=== PATIENT | male | born 1985 | race Caucasian/White ===

== ENCOUNTER 2018-03-06 10:28 | Emergency (ER) | payer OTHER, MEDICAID, SELFPAY ==
[2018-03-06 10:47] VITALS: BP 139/93; PULSE 74; RESP 20; TEMP 36.7; O2SAT 98
--- NOTE | 2018-03-06 10:54 | ED_ITS ---
HPI - Dental/Oral General Chief complaint: Dental/Oral Stated complaint: BURNING PAIN IN THROAT, HURTS TO EAT OR SWALLOW Time Seen by Provider: 03/06/18 10:46 Source: patient Mode of arrival: ambulatory Limitations: no limitations History of Present Illness HPI Narrative: 32-year-old male here for evaluation approximately 4 days of worsening sore throat. Denies any other sinus congestion or ear pain. Has not tried anything for it in the past. Does have a cough. No shortness of breath. Related Data Previous Rx's Medication Instructions Recorded penicillin V potassium 500 mg PO BID 10 Days #20 tab 03/06/18 Allergies Allergy/AdvReac Type Severity Reaction Status Date / Time No Known Drug Allergies Allergy Verified 03/06/18 11:09 Review of Systems Constitutional Denies chills, Reports fever(s) (Subjective fevers) and Denies headache(s) Eyes Denies diplopia and Denies eye pain ENT Ears, Nose, Mouth, and Throat: Denies dental pain, Denies vertigo, Denies dizziness, Denies facial pain, Denies headache(s), Denies nasal trauma, Denies tinnitus, Denies sinus pain, Denies sinus pressure, Reports sore throat, Reports throat swelling and Denies tongue swelling Cardiovascular Denies dyspnea Respiratory Reports cough and Denies dyspnea Gastrointestinal Gastrointestinal: Denies nausea and Denies vomiting Integumentary/Breasts Denies rash and Denies sores Neurologic Denies behavioral changes, Denies vertigo, Denies dizziness and Denies headache( s) Psychiatric Denies behavioral changes Allergic/Immunologic Reports throat swelling and Denies tongue swelling PFS Social History Smoking Status: Current every day smoker Exam Initial Vital Signs Initial Vital Signs: Vital Signs Temperature 98.1 F 03/06/18 10:47 Pulse Rate 74 03/06/18 10:47 Respiratory Rate 20 03/06/18 10:47 Blood Pressure 139/93 H 03/06/18 10:47 Pulse Oximetry 98 03/06/18 10:47 Const General: cooperative, healthy appearing, well developed, well groomed and No acute distress Orientation: alert, awake and oriented x3 HENMT Head: normal to inspection, normocephalic and atraumatic Ears: TM's normal bilaterally Nose: external nose normal Face and sinus: normal facial exam Mouth: other (Patient with exudate bilateral oropharynx with midline uvula) Throat: uvula midline Neck Lymphatic: lymphadenopathy Resp Effort & Inspection: normal respiratory effort Auscultation: clear to auscultation bilaterally Cardio Rate: regular rate Rhythm: regular rhythm Pulses: radial pulses present Skin Lesions: no lesions Rashes: no rashes Neuro General: alert, awake and oriented x3 Cognition: normal cognition Speech: speech normal Gait: normal gait Extrem General: normal to inspection Course Vital Signs - 8 hr 03/06/18 10:47 Temperature 98.1 F Pulse Rate 74 Respiratory Rate 20 Blood Pressure 139/93 H Pulse Oximetry 98 MDM - Dental/Oral MDM Narrative Medical decision making narrative: Patient's rapid strep test here in the emergency department resulted as ?invalid ?rather than repeating this given his history and physical exam I feel that strep throat is a high possibility. He does have bilateral exudate and lymphadenopathy and chills and subjective fevers. Discussed treatment options with the patient to include 1 time dose of intramuscular antibiotics versus oral antibiotics for the next 10 days. He opted for the oral antibiotics. He denied any allergies. Patient was also given Motrin and steroids here in the ER. He was given return precautions. No indication for IV fluids. Patient is not in respiratory distress. Physical exam not consistent with retropharyngeal abscess or peritonsillar abscess. Patient expressed understanding and agreement with plan. Discharge Plan Departure Patient Disposition: Home, Self-Care Clinical Impression: Acute pharyngitis Instructions: Sore Throat, DI for Pharyngitis/Tonsillopharyngitis -- Adult Activity Restrictions/Additional Instructions: Recommend that you continue to increase your fluid intake. Take all of the antibiotics as directed. Return to the emergency department for any new or worsening symptoms Prescriptions: New penicillin V potassium 500 mg tablet 500 mg PO BID 10 Days Qty: 20 RF: 0
--- NOTE | 2018-03-06 11:39 | PC.NURSE ---
strep test inconclusive, did not want a repeat
[2018-03-06] MEDS: DEXAMETHASONE 10 MG/ML VIAL PO (11:52)
[2018-03-06] MEDS: IBUPROFEN 400 MG TABLET 800 MG PO (11:52)
[2018-03-06 11:56] VITALS: BP 139/82; PULSE 67; O2SAT 100
[2018-03-06 12:14] VITALS: BP 120/77; PULSE 55; RESP 14; O2SAT 99
== END 2018-03-06 12:14 | disposition home or self-care (01) ==
PROVIDERS: Emergency Provider Emergency Medicine
DX: J02.9 Acute pharyngitis, unspecified (principal)
CPT/HCPCS: 87880; 99282; 99283; J1100

== ENCOUNTER 2018-05-14 18:05 | Emergency (ER) | payer OTHER, MEDICAID, SELFPAY ==
[2018-05-14 18:08] VITALS: BP 137/73; PULSE 128; RESP 20; TEMP 36.5; O2SAT 100; BMI 25.8
--- NOTE | 2018-05-14 20:46 | ED_ITS ---
HPI - Skin/Abscess/Foreign Bdy <MATT Rodriguez - Last Filed: 05/14/18 22:10> General Chief complaint: Skin/Abscess/Foreign Body Stated complaint: LUMP ON LEFT UPPER LEG Time Seen by Provider: 05/14/18 19:58 Source: patient Mode of arrival: ambulatory Limitations: no limitations History of Present Illness HPI narrative: 33-year-old male with history of prior abscesses and his current everyday smoker here for complaint of having a area of swelling to his left inner thigh area for the past several days. Reports worsening redness over the past couple of days. He denies any drainage from the area. No trauma to the area. No fevers no chills. He denies any other concerns at this timeframe. MD complaint: lesion Related Data Previous Rx's Medication Instructions Recorded clindamycin HCl 300 mg PO QID #28 cap 05/14/18 Allergies Allergy/AdvReac Type Severity Reaction Status Date / Time No Known Drug Allergies Allergy Verified 03/06/18 11:09 Review of Systems <MATT Rodriguez - Last Filed: 05/14/18 22:10> Constitutional Denies chills, Denies fever(s), Denies lethargy and Denies weakness Eyes Denies change in vision, Denies eye discharge, Denies irritation and Denies loss of vision Cardiovascular Denies chest pain, Denies irregular heart rhythm, Denies lightheadedness, Denies palpitations, Denies dyspnea, Denies dyspnea on exertion and Denies orthopnea Respiratory Denies cough, Denies dyspnea, Denies dyspnea on exertion and Denies wheezing Gastrointestinal Gastrointestinal: Denies abdominal pain, Denies change in bowel habits, Denies diarrhea, Denies nausea and Denies vomiting Genitourinary Denies hematuria, Denies flank pain, Denies urinary incontinence and Denies urinary urgency Musculoskeletal Denies back pain, Denies muscle weakness, Denies numbness and Denies tingling Integumentary/Breasts Comments: Abscess to left inner thigh Neurologic Denies confusion, Denies loss of vision, Denies numbness, Denies tingling and Denies weakness Psychiatric Denies anxiety, Denies confusion, Denies depression, Denies homicidal ideation and Denies suicidal ideation Endocrine Denies palpitations Hematologic/Lymphatic Denies easy bruising Allergic/Immunologic Denies wheezing Exam <MATT Rodriguez Last Filed: 05/14/18 22:10> Initial Vital Signs Initial Vital Signs: Vital Signs Temperature 97.7 F 05/14/18 18:08 Pulse Rate 128 H 05/14/18 18:08 Respiratory Rate 20 05/14/18 18:08 Blood Pressure 137/73 05/14/18 18:08 Pulse Oximetry 100 05/14/18 18:08 Const General: cooperative and well developed Nutritional Appearance: well nourished Orientation: alert, awake, oriented x3 and not confused HENNH Mouth: oral mucosae normal and moist mucous membranes Eyes Conjunctivae: conjunctivae normal Sclera: sclerae normal Pupils: PERRL EOM: EOM intact bilaterally Resp Effort & Inspection: normal respiratory effort, able to speak in complete sentences, no respiratory distress and no use of accessory muscles Auscultation: clear to auscultation bilaterally, no rales, no rhonchi and no wheezes Cardio Rate: regular rate Rhythm: regular rhythm Heart Sounds: no click, no gallops, no murmurs and no rubs Pulses: normal peripheral pulses GI Inspection: non-distended Palpation: soft, no hepatosplenomegaly, No guarding, No pulsatile mass and No tender Auscultation: normal bowel sounds Skin General: no rashes or lesions noted, No jaundice and No petechiae Neuro General: alert, oriented x3, gait normal and no focal motor deficits Speech: speech normal Extrem Other: 1.5 cm circular raised nodule to the left inner thigh with induration and fluctuance. Slight amount of surrounding erythema. No drainage. Distal CMS is intact. <Eloina Jerome DO - Last Filed: 05/14/18 23:57> Initial Vital Signs Initial Vital Signs: Vital Signs Temperature 97.7 F 05/14/18 18:08 Pulse Rate 128 H 05/14/18 18:08 Respiratory Rate 20 05/14/18 18:08 Blood Pressure 137/73 05/14/18 18:08 Pulse Oximetry 100 05/14/18 18:08 Procedures <MATT Rodriguez - Last Filed: 05/14/18 22:10> Abscess I/D Site: lower extremity Side (if applicable): left Local Anesthetic: lidocaine 1% Amount of anesthesia used (mL): 1 Technique: needle aspiration Amount of fluid expressed (mL): 1 Irrigation: No Packing used?: none Complications: other Course <MATT Rodriguez - Last Filed: 05/14/18 22:10> Orders Ordered: Discontinued Medications Clindamycin HCl (Cleocin) 300 mg PO NOW ONE Stop: 05/14/18 20:45 Last Admin: 05/14/18 20:55 Dose: 300 mg Ibuprofen (Advil) 400 mg PO NOW ONE Stop: 05/14/18 20:46 Last Admin: 05/14/18 20:55 Dose: 400 mg Vital Signs - 8 hr 05/14/18 18:08 05/14/18 20:58 Temperature 97.7 F Pulse Rate 128 H 68 Respiratory Rate 20 16 Blood Pressure 137/73 Blood Pressure [Left Arm] 145/72 H Pulse Oximetry 100 96 <Eloina Jerome DO - Last Filed: 05/14/18 23:57> Orders Ordered: Discontinued Medications Clindamycin HCl (Cleocin) 300 mg PO NOW ONE Stop: 05/14/18 20:45 Last Admin: 05/14/18 20:55 Dose: 300 mg Ibuprofen (Advil) 400 mg PO NOW ONE Stop: 05/14/18 20:46 Last Admin: 05/14/18 20:55 Dose: 400 mg Vital Signs - 8 hr 05/14/18 18:08 05/14/18 20:58 Temperature 97.7 F Pulse Rate 128 H 68 Respiratory Rate 20 16 Blood Pressure 137/73 Blood Pressure [Left Arm] 145/72 H Pulse Oximetry 100 96 MDM - Skin/Abscess/Foreign Bdy <MATT Rodriguez - Last Filed: 05/14/18 22:10> MDM Narrative Medical decision making narrative: I and d was completed to abscess to left inner thigh with 18 gauge needle small purulent amount of drainage is removed. Wound dressed with bacitracin and dressing. He is placed on clindamycin. Follow up with primary care provider next week for re-evaluation. For any worsening symptoms return to the emergency room. Use [id number] Tylenol or Motrin as needed for any discomfort. Warm moist compresses to the area 4 to 5 times a day for 20 min at a time. Discharge Plan Departure Patient Disposition: Home Clinical Impression: Abscess of left thigh Discharge Date/Time: 05/14/18 21:17 Interventions: ED Discharge Assessment Last Done: 05/14/18 21:16 Instructions: DI for Skin Abscess Activity Restrictions/Additional Instructions: I and d was completed to abscess to left inner thigh. You have been placed on clindamycin. Follow up with primary care provider next week for re-evaluation. For any worsening symptoms return to the emergency room. Use over-the- counter Tylenol or Motrin as needed for any discomfort. Dress wound daily with bacitracin and a dressing. Warm compresses to the area 4 to 5 times a day for 20 min at a time for the next couple of days. Prescriptions: New clindamycin HCl 300 mg capsule 300 mg PO QID Qty: 28 RF: 0 Referrals: [facility] [Provider Group] <Eloina Jerome DO - Last Filed: 05/14/18 23:57> Cosign ED Attending Anilature Attestation: I was immediately available in the department for consultation. Documentation has been reviewed. I agree with assessment and plan.
[2018-05-14] MEDS: IBUPROFEN 400 MG TABLET PO (20:55)
[2018-05-14] MEDS: CLINDAMYCIN 150 MG CAPSULE 300 MG PO (20:55)
[2018-05-14 20:58] VITALS: BP 145/72; PULSE 68; RESP 16; O2SAT 96
== END 2018-05-14 21:17 | disposition home or self-care (01) ==
PROVIDERS: Emergency Provider Nurse Practitioner Family
DX: L02.416 Cutaneous abscess of left lower limb (principal)
CPT/HCPCS: 10060; 99283

== ENCOUNTER 2018-08-31 07:16 | Emergency (ER) | payer OTHER, MEDICAID, SELFPAY ==
[2018-08-31 07:22] VITALS: BP 132/77; PULSE 56; RESP 16; TEMP 36.2; O2SAT 97; BMI 22.9
--- NOTE | 2018-08-31 08:01 | ED_ITS ---
HPI - Skin/Abscess/Foreign Bdy General Chief complaint: Skin/Abscess/Foreign Body Stated complaint: left ear pain, rt arm ? Time Seen by Provider: 08/31/18 07:49 Source: patient Mode of arrival: ambulatory Limitations: no limitations History of Present Illness HPI narrative: Patient is a 33-year-old male who is complains of itching and rash all over his body. He denies any hallucinations of of bugs. He says it started a few days ago. He feels like his skin is crawling. He has no fever or chills. He denies any drug use. He states that he got fired last night from his job and that his left him. Also complaining of rectal pain which started 30 min ago. He denies any have no bowel movements no abdominal pain MD complaint: rash Tetanus up to date: unsure Location: generalized Severity: mild Quality: pruritic Relieving factors: none Exacerbating factors: none Related Data Previous Rx's Medication Instructions Recorded clindamycin HCl 300 mg PO QID #28 cap 05/14/18 diphenhydramine HCl 25 mg PO Q6H PRN #20 cap 08/31/18 Allergies Allergy/AdvReac Type Severity Reaction Status Date / Time No Known Drug Allergies Allergy Verified 08/31/18 07:22 Review of Systems Review of Systems All systems reviewed & are unremarkable except as noted in HPI and below Constitutional Denies chills, Denies fever(s), Denies lethargy and Denies weakness Cardiovascular Denies chest pain, Denies irregular heart rhythm, Denies lightheadedness, Denies palpitations, Denies dyspnea, Denies dyspnea on exertion and Denies orthopnea Respiratory Denies cough, Denies dyspnea, Denies dyspnea on exertion and Denies wheezing Gastrointestinal Gastrointestinal: Reports as per HPI, Denies abdominal pain, Denies diarrhea, Denies nausea and Denies vomiting Musculoskeletal Denies back pain, Denies muscle weakness, Denies numbness and Denies tingling Integumentary/Breasts Reports as per HPI Neurologic Denies numbness, Denies tingling and Denies weakness Endocrine Denies palpitations Allergic/Immunologic Denies wheezing PFSH Medical History Patient denies medical problems (Acute) Social History Smoking Status: Current every day smoker substance use type: methamphetamine Exam Initial Vital Signs Initial Vital Signs: Vital Signs Temperature 97.2 F L 08/31/18 07:22 Pulse Rate 56 L 08/31/18 07:22 Respiratory Rate 16 08/31/18 07:22 Blood Pressure 132/77 08/31/18 07:22 Pulse Oximetry 97 08/31/18 07:22 GENERAL: Well-appearing, well-nourished and in no acute distress. HEENT: Head atraumatic,EOMI, pupils reactive CARDIOVASCULAR: Regular rate and rhythm without murmurs, rubs or gallops. RESPIRATORY: Breath sounds equal bilaterally, no wheezes rales or rhonchi. ABDOMEN: Soft, nontender. Normoactive bowel sounds all 4 quadrants. No guarding or rebound. RECTAL: No hemorrhoids no stool in rectal vault nontender no sign of trauma EXTREMITIES: Normal range of motion, no clubbing or edema. Neurovascularly intact NEUROLOGICAL: Alert and oriented x4.Normal gait and speech. SKIN: No track locke no bites, minimal diffuse erythema no abscess Course Vital Signs - 8 hr 08/31/18 07:22 Temperature 97.2 F L Pulse Rate 56 L Respiratory Rate 16 Blood Pressure 132/77 Pulse Oximetry 97 Discharge Plan Departure Patient Disposition: Home Clinical Impression: Rash Discharge Date/Time: 08/31/18 08:19 Interventions: ED Discharge Assessment Last Done: 08/31/18 08:12 Instructions: DI for Rash Activity Restrictions/Additional Instructions: *You have been diagnosed with rash *What to do: No sign of infection no bugs, try a lotion to help moisturize *Continue to take medications as directed: Faxed to [facility] Benadryl 25-50 mg every 6 hr if needed for itching this does cause drowsiness do not drive or operate heavy machinery *Follow up with your primary care provider in 2-3 days *Return to ER if you should have worsening rash, fever or any new, worsening or concerning symptoms Prescriptions: New diphenhydramine HCl 25 mg capsule 25 mg PO Q6H PRN (Reason: itching) Qty: 20 RF: 0 No Action clindamycin HCl 300 mg capsule 300 mg PO QID Qty: 28 RF: 0
--- NOTE | 2018-08-31 08:11 | PC.NURSE ---
pt c/o itching, rash all over body. states feels like something crawling pt's skin reddened, mild scratch locke. pt states it could just be hallucinations states has had that in the past. states because im an idiot, no willing to elaborate on subject.
--- NOTE | 2018-08-31 08:15 | PC.NURSE ---
pt discharged. approached patient in the room to ask if he had anyother concerns, it had been 10min since discharge. pt still sitting on bed shirt and shoes off. pt appears angry states ya thanks for the attitude asked pt if there is a problem, if he had more questions pt continues to escalate, appearing more angry. pt raising voice grabs shoes and states ill just leave without my shoes on then states i dont appreciate your attitude, and forcing me to leave again expressed to patient we were finished with his care, unless he had more questions. pt storms out of room, stating im going to contact your boss, you are so rude. Unknown why patient became angry. pt unwilling to discuss situation with staff to try and resolve. pt continues to mumble and storm out of department.
--- NOTE | 2018-08-31 08:20 | PC.NURSE ---
reminded patient to take his paperwork, attempted to put paperwork in his hand as he was leaving room. pt states i dont need that fucking paper. and left.
== END 2018-08-31 08:19 | disposition home or self-care (01) ==
PROVIDERS: Emergency Provider Emergency Medicine
DX: R21 Rash and other nonspecific skin eruption (principal)
CPT/HCPCS: 99282

== ENCOUNTER 2018-09-01 02:43 | Emergency (ER) | payer OTHER, MEDICAID, SELFPAY ==
[2018-09-01 02:56] VITALS: BP 151/89; PULSE 100; RESP 20; TEMP 36.5; O2SAT 97; BMI 24.3
--- NOTE | 2018-09-01 03:09 | ED.GENADULT ---
HPI - General Adult General Chief complaint: Eye Problems Stated complaint: RASH ON EYES, RECTAL PAIN Time Seen by Provider: 09/01/18 02:45 Source: patient Mode of arrival: ambulatory Limitations: no limitations History of Present Illness HPI narrative: 33-year-old male who was seen here in the emergency department yesterday morning for the same symptoms that he returns for today. He states that yesterday he was seen by the day provider he states did not do anything for him accepts and him with Benadryl. He states he did not take the Benadryl. He returns today for further evaluation. No new symptoms. Related Data Previous Rx's Medication Instructions Recorded clindamycin HCl 300 mg PO QID #28 cap 05/14/18 diphenhydramine HCl 25 mg PO Q6H PRN #20 cap 08/31/18 erythromycin 0.5 inch EYE-RIGHT Q8H 3 Days #3.5 09/01/18 gram ibuprofen [Motrin IB] 200 mg PO TID-QID PRN #60 tab 09/01/18 Allergies Allergy/AdvReac Type Severity Reaction Status Date / Time No Known Drug Allergies Allergy Verified 09/01/18 03:01 Review of Systems Constitutional Denies fever(s) and Denies headache(s) Eyes Denies change in vision, Reports irritation (Right), Reports itchy eyes and Reports eye pain (Right) ENT Ears, Nose, Mouth, and Throat: Denies vertigo, Denies dizziness, Denies headache(s), Denies sore throat and Denies throat swelling Cardiovascular Denies chest pain, Denies palpitations and Denies dyspnea Respiratory Denies dyspnea Gastrointestinal Gastrointestinal: Reports abdominal pain, Denies nausea and Denies vomiting Comments: Rectal pain Genitourinary Denies dysuria Musculoskeletal Denies myalgias and Denies arthralgias Integumentary/Breasts Reports pruritus and Reports rash Neurologic Denies vertigo, Denies dizziness and Denies headache(s) Endocrine Denies palpitations Hematologic/Lymphatic Denies easy bleeding and Denies easy bruising Allergic/Immunologic Denies urticaria, Reports itchy eyes and Denies throat swelling PFSH Medical History Patient denies medical problems (Acute) Social History Smoking Status: Current every day smoker substance use type: methamphetamine Exam Initial Vital Signs Initial Vital Signs: Vital Signs Temperature 97.7 F 09/01/18 02:56 Pulse Rate 100 H 09/01/18 02:56 Respiratory Rate 20 09/01/18 02:56 Blood Pressure 151/89 H 09/01/18 02:56 Pulse Oximetry 97 09/01/18 02:56 Const General: cooperative, comfortable, well developed, well groomed and No acute distress Orientation: alert, awake and oriented x3 HENMT Head: normal to inspection and normocephalic Eyes Other: Left eye unremarkable Right eye with green discharge No uptake of stain with fluorescein Resp Effort & Inspection: normal respiratory effort Auscultation: clear to auscultation bilaterally Cardio Rate: regular rate Rhythm: regular rhythm GI Inspection: non-distended Palpation: soft Rectal Exam: visual inspection normal, normal sphincter tone, No fissure, No hemorrhoids, No laceration and No lesions Skin Lesions: no lesions Rashes: no rashes Other: Patient has areas of redness in sun-exposed areas on the back of his neck and also the back of his hands. No at work area. Does have dry skin throughout. No signs of scabies. No signs of infection. Neuro General: alert, awake and oriented x3 Extrem General: normal to inspection and capillary refill normal Psych Appearance: grossly normal and well kempt Course Vital Signs - 8 hr 09/01/18 02:56 Temperature 97.7 F Pulse Rate 100 H Respiratory Rate 20 Blood Pressure 151/89 H Pulse Oximetry 97 Medical Decision Making [facility] Narrative Medical decision making narrative: Patient with no specific rash. He was given a prescription for Benadryl during his last visit which I encouraged him to take. Patient does have green drainage from his right eye. Does not wear contacts. No uptake with fluorescein stain. Will send home with a prescription for erythromycin ointment. No signs of corneal abrasion. Patient with normal rectal exam. Will hold on further workup for now. Patient was reassured on his symptoms. He was given return precautions. He expressed understanding and agreement with plan. Discharge Plan Departure Patient Disposition: Home Clinical Impression: Conjunctivitis Instructions: DI for Conjunctivitis Activity Restrictions/Additional Instructions: I do recommend you take the Benadryl that was prescribed here during your last visit. Take the other medication likely discussed. Contact your primary care doctor for follow-up. Prescriptions: New erythromycin 5 mg/gram (0.5 %) ointment 0.5 inch EYE-RIGHT Q8H 3 Days Qty: 3.5 RF: 0 ibuprofen [Motrin IB] 200 mg tablet 200 mg PO TID-QID PRN (Reason: fever or pain) Qty: 60 RF: 0 No Action clindamycin HCl 300 mg capsule 300 mg PO QID Qty: 28 RF: 0 diphenhydramine HCl 25 mg capsule 25 mg PO Q6H PRN (Reason: itching) Qty: 20 RF: 0
--- NOTE | 2018-09-01 03:16 | PC.NURSE ---
patient states he was given Benadryl yesterday but forgot his prescription and didn't try anything else. Pt states he showered yesterday but it did not help. Today has redness in his eye and his itching is worse. States he also feel like something is in his hair
[2018-09-01] MEDS: ERYTHROMYCIN OPHTH 1 GM OINT 1 APPLIC EYE-RIGHT (03:29)
--- NOTE | 2018-09-01 03:45 | PC.NURSE ---
provided pt with socks per request. States he did not bring his own. Pt is in room washing hands, rubbing at eyes, and going through linen closet. Informed pt that he is ready for discharge and is able to go home.
--- NOTE | 2018-09-01 04:02 | PC.NURSE ---
Patient still in room, site coordinator asked him if he was okay and stated he has been discharged. Pt had not yet put on socks and became upset at being asked to leave. Pt grabbed belongings and left department.
== END 2018-09-01 04:04 | disposition home or self-care (01) ==
PROVIDERS: Emergency Provider Emergency Medicine
DX: H10.9 Unspecified conjunctivitis (principal)
CPT/HCPCS: 99282; 99283

== ENCOUNTER 2018-12-18 23:20 | Emergency (ER) | payer OTHER, MEDICAID, SELFPAY ==
[2018-12-18 23:20] VITALS: BP 124/84; PULSE 90; RESP 18; TEMP 36.6; O2SAT 99; BMI 28.3
--- NOTE | 2018-12-19 00:19 | ED.ANXIETY ---
HPI - Anxiety General Chief Complaint: Anxiety Stated Complaint: thinks he is having drug induced hallucinations Time Seen by Provider: 12/19/18 00:19 Source: patient Mode of arrival: ambulatory Limitations: no limitations History of Present Illness HPI narrative: Patient is a 33-year-old male who arrived to the emergency department for evaluation of a panic attack. Patient states he has had panic attacks in the past. He stated that he did smoke some methamphetamine earlier today. He states that he either smokes it or snorts it however today he did smoke it. He states that afterwards he started to feel very panicked. He took a Benadryl prior to arrival as well. By the time I evaluated him patient states that he felt much better. Related Data Previous Rx's Medication Instructions Recorded clindamycin HCl 300 mg PO QID #28 cap 05/14/18 diphenhydramine HCl 25 mg PO Q6H PRN #20 cap 08/31/18 ibuprofen [Motrin IB] 200 mg PO TID-QID PRN #60 tab 09/01/18 Allergies Allergy/AdvReac Type Severity Reaction Status Date / Time No Known Drug Allergies Allergy Verified 09/01/18 03:01 Review of Systems Constitutional Denies fever(s) and Denies headache(s) ENT Ears, Nose, Mouth, and Throat: Denies headache(s) Cardiovascular Denies chest pain and Denies dyspnea Respiratory Denies dyspnea Gastrointestinal Gastrointestinal: Denies abdominal pain Integumentary/Breasts Denies rash Neurologic Denies confusion and Denies headache(s) Psychiatric Reports anxiety, Denies confusion and Reports panic attacks Hematologic/Lymphatic Denies easy bleeding and Denies easy bruising Allergic/Immunologic Denies urticaria [facility], [facility]–1983 Medical History Patient denies medical problems (Acute) Social History Smoking Status: Current every day smoker substance use type: methamphetamine Social History Smoking Status: Current every day smoker substance use type: methamphetamine Exam Initial Vital Signs Initial Vital Signs: Vital Signs Temperature 97.9 F 12/18/18 23:20 Pulse Rate 90 12/18/18 23:20 Respiratory Rate 18 12/18/18 23:20 Blood Pressure 124/84 12/18/18 23:20 Pulse Oximetry 99 12/18/18 23:20 Const General: cooperative, well developed and No acute distress Orientation: alert, awake and oriented x3 HENMT Head: normal to inspection and normocephalic Nose: external nose normal, nares normal, septum normal and No epistaxis Resp Effort & Inspection: normal respiratory effort Cardio Rate: regular rate Skin Lesions: no lesions Rashes: no rashes Neuro General: alert, awake and oriented x3 Cognition: normal cognition Speech: other (Pressured speech) Extrem General: normal to inspection and capillary refill normal Psych Appearance: grossly normal Speech and Movement: pressured speech Mood: congruent mood Affect: normal affect Attitude: cooperative Thought Content: suicidality Course Vital Signs - 8 hr 12/18/18 23:20 12/19/18 00:51 Temperature 97.9 F Pulse Rate 90 84 Respiratory Rate 18 20 Blood Pressure 124/84 Blood Pressure [Left Arm] 128/88 Pulse Oximetry 99 98 MDM - Anxiety MDM Narrative Medical decision making narrative: Patient stated that his anxiety has greatly improved by the time I evaluated him here in the emergency department. He was alert oriented x3. he did admit to smoking methamphetamine prior to arrival which I suspect is was causing his issues. Hold on further workup for now. Patient was given return precautions and follow-up instructions. He expressed understanding and agreement with plan. Discharge Plan Departure Patient Disposition: Home Clinical Impression: Methamphetamine abuse, Anxiety Instructions: DI for Anxiety -- Adult, DI for Drug Abuse and Drug Addiction Activity Restrictions/Additional Instructions: No driving for the next 24 hours or in the future if you partake in intoxicating substances. Contact your primary care doctor for follow-up. Return to the emergency department for any new or worsening symptoms Prescriptions: No Action clindamycin HCl 300 mg capsule 300 mg PO QID Qty: 28 RF: 0 diphenhydramine HCl 25 mg capsule 25 mg PO Q6H PRN (Reason: itching) Qty: 20 RF: 0 ibuprofen [Motrin IB] 200 mg tablet 200 mg PO TID-QID PRN (Reason: fever or pain) Qty: 60 RF: 0
[2018-12-19 00:51] VITALS: BP 128/88; PULSE 84; RESP 20; O2SAT 98
[2018-12-19 02:35] VITALS: BP 131/81; PULSE 88; RESP 18; O2SAT 98
--- NOTE | 2018-12-19 02:40 | PC.NURSE ---
He can be discharged but will be allowed to sleep here until AM.HE feels much less anxious and is alert and oriented to place,date,person and situation.
[2018-12-19 06:28] VITALS: BP 129/81; PULSE 80; RESP 20; TEMP 36.6; O2SAT 100
== END 2018-12-19 06:30 | disposition home or self-care (01) ==
PROVIDERS: Emergency Provider Emergency Medicine
DX: F41.9 Anxiety disorder, unspecified (principal); F15.10 Other stimulant abuse, uncomplicated
CPT/HCPCS: 99282

== ENCOUNTER 2018-12-26 18:16 | Emergency (ER) | payer OTHER, MEDICAID, SELFPAY ==
[2018-12-26 18:23] VITALS: BP 136/82; PULSE 90; RESP 22; TEMP 36.6; O2SAT 98
[2018-12-26] MEDS: cephALEXin 250 MG PREPACK 1 BOTTLE MISC (18:46)
[2018-12-26] MEDS: ONDANSETRON 4 MG ODT SL (18:46)
[2018-12-26 18:57] VITALS: BP 131/91; PULSE 87; RESP 15; O2SAT 100
--- NOTE | 2018-12-26 23:45 | ED_ITS ---
HPI - Skin/Abscess/Foreign Bdy General Chief complaint: Skin/Abscess/Foreign Body Stated complaint: CUT L INDEX FINGER Time Seen by Provider: 12/26/18 18:20 Source: patient Mode of arrival: ambulatory Limitations: no limitations History of Present Illness HPI narrative: 33-year-old male smoker presents with a chief complaint of laceration to his left index finger suffered while performing lawn work. His tetanus is current and while using a pipe bowl paint trimmer he accidentally caught the volar surface of his left index finger. He has full range of motion and denies any numbness or tingling. He denies other injury. MD complaint: laceration Onset (ago): hour(s) Tetanus up to date: yes Location: L hand Severity: mild Quality: burning Pain Consistency: constant Relieving factors: none Exacerbating factors: none Associated symptoms: denies other symptoms Treatments prior to arrival: bandages Related Data Previous Rx's Medication Instructions Recorded clindamycin HCl 300 mg PO QID #28 cap 05/14/18 diphenhydramine HCl 25 mg PO Q6H PRN #20 cap 08/31/18 ibuprofen [Motrin IB] 200 mg PO TID-QID PRN #60 tab 09/01/18 cephalexin [Keflex] 500 mg PO QID 7 Days #28 cap 12/26/18 Allergies Allergy/AdvReac Type Severity Reaction Status Date / Time No Known Drug Allergies Allergy Verified 09/01/18 03:01 Review of Systems Constitutional Denies chills, Denies fever(s), Denies lethargy and Denies weakness Eyes Denies change in vision, Denies eye discharge, Denies irritation and Denies loss of vision ENT Ears, Nose, Mouth, and Throat: Denies change in voice, Denies neck pain and Denies sore throat Cardiovascular Denies chest pain, Denies irregular heart rhythm, Denies lightheadedness, Denies palpitations, Denies dyspnea, Denies dyspnea on exertion and Denies orthopnea Respiratory Denies cough, Denies dyspnea, Denies dyspnea on exertion and Denies wheezing Gastrointestinal Gastrointestinal: Denies abdominal pain, Denies change in bowel habits, Denies diarrhea, Denies nausea and Denies vomiting Genitourinary Denies hematuria, Denies flank pain, Denies urinary incontinence and Denies urinary urgency Musculoskeletal Denies neck pain Integumentary/Breasts Denies pruritus, Denies erythema, Denies rash and Reports wounds Neurologic Denies confusion, Denies loss of vision and Denies weakness Psychiatric Denies anxiety, Denies confusion, Denies depression, Denies homicidal ideation and Denies suicidal ideation Endocrine Denies palpitations Hematologic/Lymphatic Denies easy bruising Allergic/Immunologic Denies wheezing [facility] Medical History Patient denies medical problems (Acute) Social History Smoking Status: Current every day smoker substance use type: methamphetamine Social History Smoking Status: Current every day smoker substance use type: methamphetamine Exam Narrative Exam Narrative: GEN: AOx3 and in mild distress EYES: Pupils are equal, round, and reactive to light and accommodation. Extraoccular muscles are intact bilaterally. There is no subconjunctival hemorrhage or exudate. CHEST: Lungs are clear to auscultation bilaterally and free of wheezes, rales, or rhonchi. Heart rate is regular rhythm, there are no murmurs, clicks, rubs, or gallops. There is no chest wall tenderness. ABD: Abdomen is soft and nontender. There is no guarding or rebound. Bowel sounds are normal in all 4 quadrants. There is no mass or organomegaly. EXT: Full painless ROM of all extremities with no loss of sensation or strength. SKIN: 1 cm laceration on the volar aspect of left index finger with minimal active bleeding. Reviewed in bloodless field and note deep structure or tendon involvement noted Warm, pink, and dry. No erythema or rash Initial Vital Signs Initial Vital Signs: Vital Signs Temperature 97.8 F 12/26/18 18:23 Pulse Rate 90 12/26/18 18:23 Respiratory Rate 22 12/26/18 18:23 Blood Pressure 136/82 12/26/18 18:23 Pulse Oximetry 98 12/26/18 18:23 Procedures Laceration Repair Laceration 1: Site: hand Size (cm): 1 Description: linear Depth: simple, single layer Local Anesthetic: lidocaine 1% and with bicarb Amount of anesthesia used (mL): 3 Pre-repair: wound explored Skin layer closed with: nylon Size (cm): 5-0 Number of sutures: 4 Course Orders Ordered: Discontinued Medications Cefazolin Sodium (Keflex) 1 bottle MISC SEEINSTR ONE Stop: 12/26/18 18:41 Last Admin: 12/26/18 18:46 Dose: 500 mg Ondansetron HCl (Zofran Odt) 4 mg SL NOW ONE Stop: 12/26/18 18:41 Last Admin: 12/26/18 18:46 Dose: 4 mg Vital Signs - 8 hr 12/26/18 18:23 12/26/18 18:57 Temperature 97.8 F Pulse Rate 90 87 Respiratory Rate 22 15 Blood Pressure 136/82 131/91 H Pulse Oximetry 98 100 Discharge Plan Departure Patient Disposition: Home Clinical Impression: Finger laceration Qualifiers: Encounter type: initial encounter Finger: index finger Damage to nail status: without damage Foreign body presence: without foreign body Laterality: left Qualified Code(s): S61.211A - Laceration without foreign body of left index finger without damage to nail, initial encounter Discharge Date/Time: 12/26/18 18:59 Interventions: ED Discharge Assessment Last Done: 12/26/18 18:57 Instructions: DI for Laceration Repair Activity Restrictions/Additional Instructions: Please keep the wound clean and dry to the best of your ability. Please monitor for signs of infection such as redness to the skin or increasing pain. Have the sutures removed by your doctor in about 7 days. If you are unable to get into your doctor, we would be happy to remove the sutures in that same timeframe. Prescriptions: New cephalexin [Keflex] 500 mg capsule 500 mg PO QID 7 Days Qty: 28 RF: 0 No Action clindamycin HCl 300 mg capsule 300 mg PO QID Qty: 28 RF: 0 diphenhydramine HCl 25 mg capsule 25 mg PO Q6H PRN (Reason: itching) Qty: 20 RF: 0 ibuprofen [Motrin IB] 200 mg tablet 200 mg PO TID-QID PRN (Reason: fever or pain) Qty: 60 RF: 0 Referrals: Jax Junior MD [Primary Care Provider] -
== END 2018-12-26 18:59 | disposition home or self-care (01) ==
PROVIDERS: Emergency Provider Emergency Medicine; PCP Family Medicine
DX: S61.211A Laceration without foreign body of left index finger without damage to nail, initial encounter (principal)
CPT/HCPCS: 12001; 99282; 99283

== ENCOUNTER 2019-01-02 07:05 | Emergency (ER) | payer OTHER, MEDICAID, SELFPAY ==
[2019-01-02 07:26] VITALS: BP 135/97; PULSE 71; RESP 18; TEMP 36.6; O2SAT 100; BMI 25.1
--- NOTE | 2019-01-02 07:47 | ED_ITS ---
HPI - Wound/Laceration General Chief Complaint: Wound/Laceration Stated Complaint: Stitches taken out Time Seen by Provider: 01/02/19 07:40 Source: patient and old records reviewed Limitations: no limitations History of Present Illness HPI narrative: 33-year-old male comes in for suture removal. Patient injured his finger with hedge trimmers. He states it has been healing well. There is little bit of pain still. No redness, drainage or other changes. Related Data Previous Rx's Medication Instructions Recorded clindamycin HCl 300 mg PO QID #28 cap 05/14/18 diphenhydramine HCl 25 mg PO Q6H PRN #20 cap 08/31/18 ibuprofen [Motrin IB] 200 mg PO TID-QID PRN #60 tab 09/01/18 Allergies Allergy/AdvReac Type Severity Reaction Status Date / Time No Known Drug Allergies Allergy Verified 09/01/18 03:01 Review of Systems Review of Systems ROS Unobtainable: All systems reviewed & are unremarkable except as noted in HPI and below Integumentary/Breasts Reports other (healing incision.) [facility] Social History Smoking Status: Current every day smoker substance use type: methamphetamine Exam Narrative Exam Narrative: second finger on left hand, healing incision with no signs of infection, drainage or erythema. Appears clean dry and intact and healing well. Sutures removed in entirety by nursing staff. Initial Vital Signs Initial Vital Signs: Vital Signs Temperature 97.9 F 01/02/19 07:26 Pulse Rate 71 01/02/19 07:26 Respiratory Rate 18 01/02/19 07:26 Blood Pressure 135/97 H 01/02/19 07:26 Pulse Oximetry 100 01/02/19 07:26 Course Vital Signs - 8 hr 01/02/19 07:26 Temperature 97.9 F Pulse Rate 71 Respiratory Rate 18 Blood Pressure 135/97 H Pulse Oximetry 100 Discharge Plan Departure Patient Disposition: Home Clinical Impression: Encounter for removal of sutures Discharge Date/Time: 01/02/19 07:56 Interventions: ED Discharge Assessment Last Done: 01/02/19 07:56 Activity Restrictions/Additional Instructions: Wound Care: Keep wound(s) clean and dry. Wash daily with soap and water only. Take antibiotics until gone. Do not use over the counter products (alcohol or peroxide)on the wounds unless instructed by a physician. If wound condition worsens (increased/expanding redness, developing fluid bliste rs, or worsening pain), either contact your doctor for an urgent re-assessment , or return to the Emergency Department. Return to the Emergency Department for any new or worsening symptoms. Prescriptions: No Action clindamycin HCl 300 mg capsule 300 mg PO QID Qty: 28 RF: 0 diphenhydramine HCl 25 mg capsule 25 mg PO Q6H PRN (Reason: itching) Qty: 20 RF: 0 ibuprofen [Motrin IB] 200 mg tablet 200 mg PO TID-QID PRN (Reason: fever or pain) Qty: 60 RF: 0 Referrals: Jax Junior MD [Primary Care Provider] -
--- NOTE | 2019-01-02 07:50 | PC.NURSE ---
removed 3 sutures . left hand 2nd finger. without incident. tolerated well. Dr. Johnson assessed finger post sutures removed
== END 2019-01-02 07:56 | disposition home or self-care (01) ==
PROVIDERS: Emergency Provider Emergency Medicine; PCP Family Medicine
DX: Z48.02 Encounter for removal of sutures (principal)
CPT/HCPCS: 99283

== ENCOUNTER 2019-03-09 16:24 | Emergency (ER) | payer OTHER, MEDICAID, SELFPAY ==
[2019-03-09 16:59] VITALS: BP 142/78; PULSE 100; RESP 12; TEMP 37.1; O2SAT 98
--- NOTE | 2019-03-09 17:06 | ED_ITS ---
HPI - URI/Sore Throat General Chief Complaint: Upper Respiratory Symptoms Stated Complaint: SORE THROAT Time Seen by Provider: 03/09/19 17:00 Source: patient Mode of arrival: ambulatory Limitations: no limitations History of Present Illness HPI Narrative: 33-year-old male here for evaluation of 3 days of a sore throat. Has felt feverish at home but no specific fevers. No ear pain. No sore throat. No cough. Related Data Home Medications Medication Instructions Recorded Confirmed Penicillin Tab 2 tab PO .ONCE 03/09/19 03/09/19 Allergies Allergy/AdvReac Type Severity Reaction Status Date / Time No Known Drug Allergies Allergy Verified 09/01/18 03:01 Review of Systems Constitutional Reports fever(s) ENT Ears, Nose, Mouth, and Throat: Denies vertigo, Denies neck pain, Reports sore throat and Denies throat swelling Cardiovascular Denies chest pain and Denies dyspnea Respiratory Denies cough and Denies dyspnea Gastrointestinal Gastrointestinal: Denies abdominal pain, Denies nausea and Denies vomiting Musculoskeletal Denies neck pain Integumentary/Breasts Denies rash Neurologic Denies confusion and Denies vertigo Psychiatric Denies confusion Hematologic/Lymphatic Denies easy bleeding and Denies easy bruising Allergic/Immunologic Denies throat swelling PFSH Medical History Patient denies medical problems (Acute) Social History Smoking Status: Current every day smoker substance use type: methamphetamine Exam Initial Vital Signs Initial Vital Signs: Vital Signs Temperature 98.7 F 03/09/19 16:59 Pulse Rate 100 H 03/09/19 16:59 Respiratory Rate 12 03/09/19 16:59 Blood Pressure 142/78 H 03/09/19 16:59 Pulse Oximetry 98 03/09/19 16:59 Const General: cooperative, healthy appearing, comfortable, well developed, well groomed and No acute distress Orientation: alert, awake and oriented x3 HENMT Head: normal to inspection and normocephalic Nose: external nose normal Mouth: oral mucosae normal Throat: posterior oropharynx normal Neck Lymphatic: No lymphadenopathy Resp Effort & Inspection: normal respiratory effort Auscultation: clear to auscultation bilaterally Cardio Rate: regular rate Rhythm: regular rhythm Skin Lesions: no lesions Rashes: no rashes Neuro General: alert, awake and oriented x3 Cognition: normal cognition Speech: speech normal Extrem General: normal to inspection and capillary refill normal Course Orders Ordered: Discontinued Medications Dexamethasone (Decadron) 10 mg PO NOW ONE Stop: 03/09/19 17:28 Last Admin: 03/09/19 17:44 Dose: 10 mg Penicillin G Benzathine (Bicillin L-A) 1,200,000 unit IM NOW ONE Stop: 03/09/19 17:28 Last Admin: 03/09/19 17:44 Dose: 1,200,000 unit Vital Signs - 8 hr 03/09/19 16:59 Temperature 98.7 F Pulse Rate 100 H Respiratory Rate 12 Blood Pressure 142/78 H Pulse Oximetry 98 MDM - URI/Sore Throat Lab Data Point of Care Testing Rapid Strep A Positive [facility] Narrative Medical decision making narrative: Rapid strep is positive. Has a relatively benign oropharyngeal exam. No respiratory distress. No signs of peritonsillar abscess or retropharyngeal abscess. No rashes. Did discuss his options to include oral antibiotics or IM antibiotics. Patient opted for the IM antibiotics. He was also given Decadron here in the ER. He was given return precautions and follow-up instructions. He expressed understanding and agreement plan. Discharge Plan Departure Patient Disposition: Home Clinical Impression: Acute streptococcal pharyngitis Instructions: DI for Strep Throat Activity Restrictions/Additional Instructions: Be sure to increase your fluid intake. You can take Tylenol and/or ibuprofen for any fevers or body aches. Return to the emergency department for any worsening symptoms Prescriptions: No Action Penicillin Tab 2 tab PO .ONCE RF: 0 Referrals: Jax Junior MD [Primary Care Provider] -
[2019-03-09] MEDS: PENICILLIN G BENZATHINE 1,200,000 UNIT/2 ML SYRINGE 1200000 UNIT IM (17:44)
[2019-03-09] MEDS: DEXAMETHASONE 10 MG/ML VIAL PO (17:44)
[2019-03-09 18:04] VITALS: BP 122/85; PULSE 110; RESP 15; O2SAT 100
== END 2019-03-09 18:05 | disposition home or self-care (01) ==
PROVIDERS: Emergency Provider Emergency Medicine; PCP Family Medicine
DX: J02.0 Streptococcal pharyngitis (principal)
CPT/HCPCS: 87880; 96372; 99282; 99283; J0561; J1100

== ENCOUNTER 2019-04-09 22:53 | Emergency (ER) | payer OTHER, MEDICAID, SELFPAY ==
[2019-04-09 23:02] VITALS: BP 109/95; PULSE 68; RESP 18; TEMP 36.9; O2SAT 98; BMI 22.9
--- NOTE | 2019-04-10 02:10 | ED_ITS ---
HPI - Extremity Injury (Upper) General Chief Complaint: Extremity Injury, Upper Stated Complaint: TRANSMISSION FELL ON LEFT ARM Related Data Home Medications Medication Instructions Recorded Confirmed Penicillin Tab 2 tab PO .ONCE 03/09/19 03/09/19 Allergies Allergy/AdvReac Type Severity Reaction Status Date / Time No Known Drug Allergies Allergy Verified 04/09/19 23:02 [facility] Social History Smoking Status: Current every day smoker substance use type: methamphetamine Exam Initial Vital Signs Initial Vital Signs: Vital Signs Temperature 98.4 F 04/09/19 23:02 Pulse Rate 68 04/09/19 23:02 Respiratory Rate 18 04/09/19 23:02 Blood Pressure 109/95 H 04/09/19 23:02 Pulse Oximetry 98 04/09/19 23:02 Course Vital Signs - 8 hr 04/09/19 23:02 Temperature 98.4 F Pulse Rate 68 Respiratory Rate 18 Blood Pressure 109/95 H Pulse Oximetry 98 Discharge Plan Departure Patient Disposition: Left Without Being Seen Clinical Impression: Patient left without being seen Discharge Date/Time: 04/09/19 23:23 Interventions: ED Discharge Assessment Last Done: 04/09/19 23:22
== END 2019-04-09 23:23 | disposition left against medical advice (07) ==
PROVIDERS: Emergency Provider Emergency Medicine; PCP Family Medicine
DX: M79.602 Pain in left arm (principal)
CPT/HCPCS: 99282

== ENCOUNTER 2019-08-13 03:20 | Emergency (ER) | payer OTHER, MEDICAID, SELFPAY ==
[2019-08-13 03:33] VITALS: BP 118/97; PULSE 96; RESP 15; TEMP 36.6; O2SAT 92; BMI 24.3
--- NOTE | 2019-08-13 03:33 | PC.NURSE ---
patient states that he is supposed to be wearing glasses and normally does not have very good vision. He does not have his glasses here with him today
--- NOTE | 2019-08-13 03:43 | ED.GENADULT ---
HPI - General Adult General Chief complaint: Eye Problems Stated complaint: rt eye swelling/discoloration left arm/poss detox Time Seen by Provider: 08/13/19 03:29 Source: patient Mode of arrival: Ambulatory Limitations: no limitations History of Present Illness HPI narrative: 34-year-old male here for evaluation of an abrasion above his right eye and redness and pain to his right eye. He states that yesterday he walked into a tree scratching his forehead. He also is complaining of different areas of burning and itching and redness throughout his body on his skin. Has not tried anything for these symptoms. Does have a prior history of methamphetamine abuse. States it has been approximately 10 days since his last use of meth. Related Data Home Medications Medication Instructions Recorded Confirmed Penicillin Tab 2 tab PO .ONCE 03/09/19 03/09/19 Previous Rx's Medication Instructions Recorded erythromycin 0.5 inch EYE-RIGHT TID 3 Days #3.5 08/13/19 gram Allergies Allergy/AdvReac Type Severity Reaction Status Date / Time No Known Drug Allergies Allergy Verified 04/09/19 23:02 Review of Systems Constitutional Constitutional: Denies fever(s) Eyes Comments: Right eye redness and foreign body sensation Musculoskeletal Musculoskeletal: Denies myalgias and Denies arthralgias Integumentary/Breasts Skin/Breast: Reports rash Neurologic Neurologic: Denies behavioral changes Psychiatric Psychiatric: Denies behavioral changes Hematologic/Lymphatic Hematologic/Lymphatic: Denies easy bleeding and Denies easy bruising Patient History Medical History Patient denies medical problems (Acute) Social History Smoking Status: Current every day smoker substance use type: methamphetamine Smoking Status: Current every day smoker alcohol intake frequency: 0-2 drinks per day Substance Use Type: marijuana and methamphetamine Exam Initial Vital Signs Initial Vital Signs: Vital Signs Temperature 97.9 F 08/13/19 03:33 Pulse Rate 96 H 08/13/19 03:33 Respiratory Rate 15 08/13/19 03:33 Blood Pressure 118/97 H 08/13/19 03:33 Pulse Oximetry 92 08/13/19 03:33 Const General: cooperative, comfortable and well developed Orientation: alert, awake and oriented x3 HENMT Head: normal to inspection and normocephalic Eyes Eyelids: eyelids normal Conjunctivae: conjunctivae normal Cornea: corneas abnormal on the right fluorescein used and abrasion and fluorescein used Pupils: PERRL EOM: EOM intact bilaterally Resp Effort & Inspection: normal respiratory effort Auscultation: clear to auscultation bilaterally Cardio Rate: regular rate Rhythm: regular rhythm GI Inspection: non-distended Palpation: soft Skin Other: Abrasion right forehead Neuro General: alert and awake Cognition: normal cognition Speech: speech normal Extrem General: normal to inspection and capillary refill normal Psych Appearance: grossly normal and well kempt Course Orders Ordered: Diphenhydramine HCl (Benadryl) 25 mg PO NOW ONE Stop: 08/13/19 03:44 Erythromycin (Erythromycin Ophth Oint) 1 applic EYE-RIGHT NOW ONE Stop: 08/13/19 03:44 Discontinued Medications Proparacaine HCl (Parcaine 0.5% Ophth Adela) 1 drops EYE-RIGHT NOW ONE Stop: 08/13/19 03:31 Vital Signs Vital signs: Vital Signs - 8 hr 08/13/19 03:33 Temperature 97.9 F Pulse Rate 96 H Respiratory Rate 15 Blood Pressure 118/97 H Pulse Oximetry 92 Medical Decision Making MDM Narrative Medical decision making narrative: Patient does have a right-sided corneal abrasion. He also has an abrasion to his right forehead which needs no intervention here in the emergency department. Patient has no discernible rash here in the ER. Does have some small areas of dry skin in the area where he is complaining of the burning and itching. We did discuss the use of moisturizing cream and hydrocortisone cream. Was given Benadryl here in the ER. No indication for antibiotics for these symptoms. Is given return precautions and follow-up instructions. He expressed understanding and agreement plan Discharge Plan Departure Patient Disposition: Home Clinical Impression: Genital pruritus Corneal abrasion, right Qualifiers: Encounter type: initial encounter Qualified Code(s): S05.01XA - Injury of conjunctiva and corneal abrasion without foreign body, right eye, initial encounter Instructions: DI for Corneal Abrasion Activity Restrictions/Additional Instructions: Use the antibiotic ointment in her eye as directed. I also recommend that you purchase [id number] cortisone cream and put it in the areas where your having the itching. Contact her primary provider for follow-up. He did not have a primary provider you can contact 360 help you establish a provider here in the area. Prescriptions: New erythromycin 5 mg/gram (0.5 %) ointment 0.5 inch EYE-RIGHT TID 3 Days Qty: 3.5 RF: 0 No Action Penicillin Tab 2 tab PO .ONCE RF: 0
[2019-08-13] MEDS: ERYTHROMYCIN OPHTH 1 GM OINT 1 APPLIC EYE-RIGHT (04:02)
[2019-08-13] MEDS: diphenhydrAMINE 25 MG TABLET PO (04:02)
[2019-08-13] MEDS: PROPARACAINE 0.5% OPHTH SOL 1 DROPS EYE-RIGHT (04:03)
== END 2019-08-13 04:13 | disposition home or self-care (01) ==
PROVIDERS: Emergency Provider Emergency Medicine
DX: S05.01XA Injury of conjunctiva and corneal abrasion without foreign body, right eye, initial encounter (principal); S00.81XA Abrasion of other part of head, initial encounter; W45.8XXA Other foreign body or object entering through skin, initial encounter
CPT/HCPCS: 99281; 99283

== ENCOUNTER 2019-09-22 07:53 | Emergency (ER) | payer OTHER, MEDICAID, SELFPAY ==
[2019-09-22 07:57] VITALS: BP 116/94; PULSE 69; RESP 18; TEMP 37.2; O2SAT 99; BMI 17.6
[2019-09-22 08:27] LABS: Ur Creatinine Normal (Normal); Ur Specific Gravity Abnormal (Normal); Urine Cocaine Negative (Negative); Urine Tetrahydrocannabinol Positive (Negative); Urine pH Normal (Normal)
[2019-09-22 08:28] LABS: UR Morphine/Opiate cutoff 300 Negative (Negative); Urine Amphetamines Negative (Negative); Urine Barbiturates Negative (Negative); Urine Benzodiazepines Negative (Negative); Urine MDMA Negative (Negative); Urine Methadone Negative (Negative); Urine Methamphetamines Positive (Negative); Urine Oxycodone Negative (Negative); Urine Phencyclidine Negative (Negative); Urine Tricyclic Antidepressant Negative (Negative)
[2019-09-22 08:35] LABS: Amorphous Sediment Urine 2+; Bacteria Urine Occasional (0-1); Culture Indicated Urine Specimen Cultured; Mucus Urine 2+ (Negative); RBC Urine 10-30/HPF (0-5/HPF); Squamous Epithelial Cell Urine 0-1 /HPF (0-5/HPF); WBC Urine 1-5/HPF (0-5/HPF)
[2019-09-22 09:25] VITALS: BP 144/90; PULSE 82
--- NOTE | 2019-09-22 20:25 | ED.PSYCH ---
HPI - Psych General Chief Complaint: Psychiatric Symptoms Stated Complaint: tripping not sure if he is hurting or not on spots Time Seen by Provider: 09/22/19 08:41 Source: patient Mode of arrival: Ambulatory History of Present Illness HPI Narrative: The patient is a 34-year-old male who was brought into the emergency department because he has a history of schizophrenia with hallucinations. The patient was primarily complaining that he had small sores and folliculitis all over his body that were painful and was worried that there cause by bug bites. The patient states that he is not having hallucinations like he has in the past where he thought that bugs were crawling over his body and biting him. 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 The patient admits to smoking methamphetamine and we had on but does not drink alcohol or use any other drugs. He denies the use of heroin or cocaine. He does occasionally use prescription drugs. The patient states that he has a family that uses drugs. He denies being homicidal or suicidal. He denies a history of asthma myocardial infarction stroke heart murmur hypertension or diabetes mellitus as well as endocarditis. He has had 2 seizures as a youth. He admits to smoking cigarettes but does not chew tobacco or drink alcohol. He denies any significant change in his weight. He has had intermittent sweats but no fever or chills. He has had no headache loss of vision change in vision diplopia. He denies any sore throat cough shortness of breath chest pain abdominal pain nausea vomiting diarrhea or urinary symptoms. Related Data Home Medications Medication Instructions Recorded Confirmed Penicillin Tab 2 tab PO .ONCE 03/09/19 03/09/19 Previous Rx's Medication Instructions Recorded triamcinolone acetonide 1 applictn TOP BID #15 gram 09/22/19 Allergies Allergy/AdvReac Type Severity Reaction Status Date / Time No Known Drug Allergies Allergy Verified 09/22/19 08:07 Review of Systems Review of Systems ROS Unobtainable: All systems reviewed & are unremarkable except as noted in HPI and below Patient History Medical History Patient denies medical problems (Acute) Social History Smoking Status: Current every day smoker substance use type: methamphetamine Smoking Status: Current every day smoker alcohol intake frequency: 0-2 drinks per day Substance Use Type: marijuana and methamphetamine Exam Narrative Exam Narrative: PHYSICAL EXAM: CONSTITUTIONAL: Awake, Alert, guarded mildly agitated and active. He does not appear ill. HEAD: AT/NC EENT: PERRL, FROM of eyes, no discharge, no nystagmus Oral mucosa is moist and pink, posterior pharynx is without erythema or exudate. NECK: Supple, no obvious JVD, Trachea is midline without stridor, SPINE: No gross deformity, no palpable tenderness of the cervical, thoracic, lumbar or sacral spine. No CVA tenderness. THORAX: No deformity, retractions, chest wall tenderness, subcutaneous air or crepitice. LUNGS: Clear with symmetrical breath sounds without respiratory distress HEART: Normal heart tones, regular rhythm and rate without murmur. ABDOMEN: Soft, non-tender, normal bowel sounds without guarding, rebound, rigidity or palpable mass or organomegaly. EXTREMITIES: No edema, cyanosis, deformity or tenderness. SKIN: The patient has multiple small punctate lesions over his arms and legs with small scabs that look mostly like folliculitis that have been scratched. He also has some dry skin around his nail beds of his toes. The patient had a very fine macular rash arm over the center of his chest. NEURO: Awake, alert, conversive, cranial nerves II-XII are symmetrical and normal, moves all 4 extremities and is ambulatory Initial Vital Signs Initial Vital Signs: Vital Signs Temperature 98.9 F 09/22/19 07:57 Pulse Rate 69 09/22/19 07:57 Respiratory Rate 18 09/22/19 07:57 Blood Pressure 116/94 H 09/22/19 07:57 Pulse Oximetry 99 09/22/19 07:57 Course Course Course Narrative: His urine drug screen was positive for methamphetamine and marijuana as he mention. The patient was prescribed triamcinolone 0.025 cream to apply to the rash over his chest and the other lesions. He was also instructed to apply Vicks Vaporub to his toenails and toes for pain discomfort in the dry skin. MDM - Psych Lab Data Labs: Lab Results 09/22/19 09/22/19 Range/Units 08:18 08:18 Urine RBC 10-30/hpf H (0-5/HPF) Urine WBC 1-5/hpf (0-5/HPF) Ur Squamous Epith Cells 0-1 /hpf (0-5/HPF) Amorphous Sediment 2+ Urine Bacteria Occasional (0-1) (None) Urine Mucus 2+ H (Negative) Ur Culture Indicated? Specimen cultured U Opiates 300ng/mL cut Negative (Negative) Ur Oxycodone Screen Negative (Negative) Urine Methadone Screen Negative (Negative) Ur Barbiturates Screen Negative (Negative) U Tricyclic Antidepress Negative (Negative) Ur Phencyclidine Scrn Negative (Negative) Ur Amphetamines Screen Negative (Negative) U Methamphetamines Scrn Positive H (Negative) Ur MDMA Scrn (Ecstasy) Negative (Negative) U Benzodiazepines Scrn Negative (Negative) Urine Cocaine Screen Negative (Negative) U Marijuana (THC) Screen Positive H (Negative) Urine Dip Bedside Urine Glucose Negative Bedside Urine Bilirubin + 1 Bedside Urine Ketone + 15 Urine Specific [place] 1.030 Bedside Urine Occult Blood ++ Bedside Urine pH 6.0 Bedside Urine Protein + 30 Bedside Urine Urobilinogen - Negative Bedside Urine Nitrite - Negative Bedside Urine Leukocytes - Negative Esterase Discharge Plan Departure Patient Disposition: Home Clinical Impression: Anxiety, Methamphetamine abuse, Family history of substance abuse, History of substance abuse, Folliculitis Discharge Date/Time: 09/22/19 09:25 Instructions: DI for Anxiety -- Adult, Methamphetamine Activity Restrictions/Additional Instructions: Follow-up with your past during [facility] get in the 12 step rehab program that she were discussing. Follow-up with your sure check and see whether not they can help you with obtaining some of the medications such as [id number] hydrocortisone for your folliculitis and rash on your chest as well as Vicks Vaporub or a generic to apply to your toes and feet for the itching sweating and discomfort in your toes and feet. Prescriptions: New triamcinolone acetonide 0.025 % cream 1 applictn TOP BID Qty: 15 RF: 0 No Action Penicillin Tab 2 tab PO .ONCE RF: 0
== END 2019-09-22 09:25 | disposition home or self-care (01) ==
PROVIDERS: Emergency Provider Emergency Medicine
DX: F41.9 Anxiety disorder, unspecified (principal); F11.10 Opioid abuse, uncomplicated; L73.9 Follicular disorder, unspecified; R21 Rash and other nonspecific skin eruption
CPT/HCPCS: 80305; 81003; 81015; 87086; 99283; 99284